=== PATIENT | male | born 1955 | race Caucasian/White ===

== ENCOUNTER 2017-05-07 18:22 | Inpatient (IN) | payer OTHER ==
[~2017-05-07] VITALS: Ht 175.3 cm; Wt 67.2 kg
[~2017-05-07 18:22] MED LIST: CLONAZEPAM0.25 MG PO; FOLIC ACID1 MG PO; LEXAPRO10 MG PO; METOPROLOL25 MG PO; MULTIPLE VITAMI1 CAP PO; PHARMASSURE MA500 MG PO; PRILOSEC 20MG20 MG PO; THIAMINE HCL100 MG PO
[2017-05-07 20:00] VITALS: BP 133/99; PULSE 96; TEMP 99
[2017-05-07] MEDS ORDERED: NORVASC 10MG10 MG PO (20:15)
[2017-05-07] MEDS ORDERED: HCTZ 25MG TAB25 MG PO (20:16)
[2017-05-07] MEDS ORDERED: NOVLOG SQ (20:17)
[2017-05-07] MEDS ORDERED: INSLANT SQ (20:19)
[2017-05-07] MEDS ORDERED: GLUCOPHAGE1000 MG PO (20:20)
[2017-05-07] MEDS ORDERED: REGLAN 10MG10 MG/TAB PO (20:22)
[2017-05-07 22:02] VITALS: BP 133/99; PULSE 96; TEMP 99
[2017-05-07 22:44] VITALS: BP 117/79; PULSE 95; TEMP 98.9
[2017-05-07] MEDS ORDERED: LOPRESSOR 550 MG/TAB PO (23:20)
[2017-05-07] MEDS ORDERED: K-TAB20 PO (23:21)
[2017-05-07] MEDS ORDERED: ZOFRAN8 MG PO (23:23)
[2017-05-08] VITALS (17 sets, daily range): BP systolic 81–151; BP diastolic 55–91; PULSE 86–134; TEMP 97.9–100.8
[2017-05-08 00:11] LABS: AMPHETAMINE URINE NEGATIVE; BARBITURATES URINE NEGATIVE; BENZODIAZEPINES URINE NEGATIVE; BUPRENORPHINE URINE NEGATIVE; METHADONE URINE NEGATIVE; OPIATES URINE POSITIVE; OXYCODONE URINE NEGATIVE; PHENCYCLIDINE URINE NEGATIVE; PROPOXYPHENE URINE NEGATIVE; THC CANNABINOIDS URINE POSITIVE; TRICYCLIC ANTIDEPRESS URINE NEGATIVE
[2017-05-08 06:26] LABS: BASO % 0.3 % (0.0-2.0); EOS # 0.1 (0.0-0.7); EOS % 0.8 % (0-4.0); GRAN # 5.7 (1.4-6.5); GRAN % 75.1 % (42.2-75.2); HEMATOCRIT 37.7 % (42.0-52.0); HEMOGLOBIN 13.3 g/dl (13.5-18.0); LYMPH # 1.1 (1.2-3.4); MEAN CELL VOLUME 92 fl (80.0-100.0); MEAN CORPUSCULAR HEMOGLOBIN 32 pg (27.0-31.0); MEAN CORPUSCULAR HGB CONC 35 g/dl (33.0-37.0); MEAN PLATELET VOLUME 9.9 fl (7.4-10.4); MONO # 0.6 (0.1-0.6); MONO % 8.3 % (1.7-9.3); PLATELET COUNT 245 K/mm3 (130-400); RED BLOOD COUNT 4.12 M/mm3 (4.20-5.60); WHITE BLOOD COUNT 7.6 K/mm3 (4.8-10.8)
[2017-05-08 06:39] LABS: CALCIUM 8.2 mg/dL (8.4-10.2); CREATININE, serum 0.92 mg/dL (0.66-1.25); MAGNESIUM 2.2 mg/dL (1.6-2.3); POTASSIUM 3.1 mmol/L (3.4-5.0)
[2017-05-09] VITALS (17 sets, daily range): BP systolic 93–137; BP diastolic 60–89; PULSE 83–104; TEMP 97.5–99.2
[2017-05-09 07:18] LABS: ADD PATHOLOGY DIFF REVIEW NO
[2017-05-09 07:31] LABS: MEAN CELL VOLUME 94 fl (80.0-100.0); MEAN CORPUSCULAR HEMOGLOBIN 32 pg (27.0-31.0); MEAN CORPUSCULAR HGB CONC 34 g/dl (33.0-37.0); MEAN PLATELET VOLUME 10.6 fl (7.4-10.4); PLATELET COUNT 195 K/mm3 (130-400); RED BLOOD COUNT 3.72 M/mm3 (4.20-5.60); WHITE BLOOD COUNT 9.6 K/mm3 (4.8-10.8)
[2017-05-09 07:34] LABS: HEMATOCRIT 34.9 % (42.0-52.0)
[2017-05-09 07:37] LABS: ADJUSTED CALCIUM 8.5 mg/dL (8.4-10.2); ALBUMIN 2.7 gm/dL (3.5-5.0); BILIRUBIN,TOTAL 0.9 mg/dL (0.0-1.0); CALCIUM 7.5 mg/dL (8.4-10.2); CREATININE, serum 0.82 mg/dL (0.66-1.25); MAGNESIUM 1.3 mg/dL (1.6-2.3); POTASSIUM 3.7 mmol/L (3.4-5.0); TOTAL PROTEIN 5.1 gm/dL (6.4-8.2)
[2017-05-09 08:50] LABS: BAND 4 % (0-10); EOSINOPHIL 1 % (0-4); LYMPHOCYTE 9 % (20.0-51.0); NEUTROPHILS 82 % (42.0-75.2); TOTAL CELLS COUNTED 100
[2017-05-09 08:51] LABS: PLATELET ESTIMATE NORMAL (NORMAL)
[2017-05-10] VITALS (16 sets, daily range): BP systolic 105–170; BP diastolic 53–88; PULSE 80–103; TEMP 97.5–99.2
[2017-05-10 07:40] LABS: BASO % 0.4 % (0.0-2.0); EOS # 0.1 (0.0-0.7); EOS % 1.6 % (0-4.0); GRAN # 5.1 (1.4-6.5); LYMPH # 0.9 (1.2-3.4); LYMPH % 13.5 % (20.0-51.0); MEAN CELL VOLUME 95 fl (80.0-100.0); MEAN CORPUSCULAR HGB CONC 34 g/dl (33.0-37.0); MEAN PLATELET VOLUME 11.1 fl (7.4-10.4); MONO # 0.6 (0.1-0.6); MONO % 9.1 % (1.7-9.3); PLATELET COUNT 181 K/mm3 (130-400); WHITE BLOOD COUNT 6.8 K/mm3 (4.8-10.8)
[2017-05-10 07:41] LABS: HEMATOCRIT 35.2 % (42.0-52.0); HEMOGLOBIN 11.9 g/dl (13.5-18.0); MEAN CORPUSCULAR HEMOGLOBIN 32 pg (27.0-31.0)
[2017-05-10 07:53] LABS: ADJUSTED CALCIUM 8.8 mg/dL (8.4-10.2); ALBUMIN 2.6 gm/dL (3.5-5.0); BILIRUBIN,TOTAL 0.5 mg/dL (0.0-1.0); CALCIUM 7.7 mg/dL (8.4-10.2); CREATININE, serum 0.75 mg/dL (0.66-1.25); MAGNESIUM 1.3 mg/dL (1.6-2.3); POTASSIUM 4.2 mmol/L (3.4-5.0); TOTAL PROTEIN 5.2 gm/dL (6.4-8.2)
[2017-05-10 11:14] LABS: PH 8 (5-8); SQUAMOUS EPITHELIAL None Seen /hpf; URINE APPEARANCE Clear; URINE BACTERIA None Seen /hpf; URINE BILIRUBIN Negative (NEGATIVE); URINE BLOOD Negative (NEGATIVE); URINE COLOR Yellow; URINE GLUCOSE 3+ (NEGATIVE); URINE KETONE Negative (NEGATIVE); URINE LEUKOCYTE ESTERASE Negative (NEGATIVE); URINE PROTEIN(semi-quant) Negative (NEGATIVE); URINE UROBILINOGEN Negative (NEGATIVE); URINE WBC 0-2 /hpf
[2017-05-10 11:19] LABS: COLLECTION METHOD CLEAN CATCH
[2017-05-11] VITALS (12 sets, daily range): BP systolic 114–144; BP diastolic 71–91; PULSE 77–97; TEMP 97.9–98.5
[2017-05-11 07:06] LABS: BASO % 0.4 % (0.0-2.0); EOS # 0.1 (0.0-0.7); EOS % 1.8 % (0-4.0); GRAN # 5.1 (1.4-6.5); HEMATOCRIT 37.8 % (42.0-52.0); HEMOGLOBIN 12.8 g/dl (13.5-18.0); LYMPH # 1.6 (1.2-3.4); LYMPH % 21.2 % (20.0-51.0); MEAN CELL VOLUME 93 fl (80.0-100.0); MEAN CORPUSCULAR HEMOGLOBIN 32 pg (27.0-31.0); MEAN CORPUSCULAR HGB CONC 34 g/dl (33.0-37.0); MEAN PLATELET VOLUME 10.2 fl (7.4-10.4); MONO # 0.7 (0.1-0.6); MONO % 9.2 % (1.7-9.3); PLATELET COUNT 237 K/mm3 (130-400); RED BLOOD COUNT 4.05 M/mm3 (4.20-5.60); WHITE BLOOD COUNT 7.6 K/mm3 (4.8-10.8)
[2017-05-11 07:24] LABS: ADJUSTED CALCIUM 9.3 mg/dL (8.4-10.2); ALBUMIN 2.9 gm/dL (3.5-5.0); BILIRUBIN,TOTAL 0.6 mg/dL (0.0-1.0); CALCIUM 8.4 mg/dL (8.4-10.2); CREATININE, serum 0.74 mg/dL (0.66-1.25); MAGNESIUM 1.7 mg/dL (1.6-2.3); POTASSIUM 3.8 mmol/L (3.4-5.0); TOTAL PROTEIN 5.8 gm/dL (6.4-8.2)
[2017-05-12 01:57] VITALS: BP 122/80; PULSE 83; TEMP 98.6
[2017-05-12 07:02] LABS: CALCIUM 8.8 mg/dL (8.4-10.2); CREATININE, serum 0.78 mg/dL (0.66-1.25); POTASSIUM 4.7 mmol/L (3.4-5.0)
[2017-05-12 08:36] VITALS: BP 118/81; PULSE 84; TEMP 97.6
[2017-05-12] MEDS ORDERED: ROCEPHIN VIA1 G/VIAL IJ (11:29)
[2017-05-12] MEDS ORDERED: PROTONIX 40MG T40 MG PO (11:31)
[2017-05-12] MEDS ORDERED: MAG-OX 400400 MG/TAB PO (11:31)
[2017-05-12] MEDS ORDERED: DUO-KAPS1 CAP PO (11:32)
[2017-05-12] MEDS ORDERED: FOLIC ACID 11 MG/TA1 PO (11:32)
[2017-05-12] MEDS ORDERED: INSLANT SQ (11:32)
[2017-05-12] MEDS ORDERED: DILAUDID 2MG TAB2 MG PO (11:33)
[2017-05-12] MEDS ORDERED: CEPHALEXIN500 M1 PO ×2 (11:34→11:35)
[2017-05-12 11:46] VITALS: BP 170/91; PULSE 117; TEMP 98.4
[2017-05-12 16:40] VITALS: BP 140/60; PULSE 59
[2017-05-12 17:18] VITALS: BP 145/61; PULSE 59
== END 2017-05-12 17:10 | disposition home or self-care (01) | DRG 438 ==
LOC: MEDICAL 18:22
PROVIDERS: Internal Medicine; Nurse Practitioner; Physician Assistant
DX: K85.20 Alcohol induced acute pancreatitis without necrosis or infection (principal); E43 Unspecified severe protein-calorie malnutrition; N17.9 Acute kidney failure, unspecified; E87.1 Hypo-osmolality and hyponatremia; R78.81 Bacteremia; R19.09 Other intra-abdominal and pelvic swelling, mass and lump; B96.1 Klebsiella pneumoniae [K. pneumoniae] as the cause of diseases classified elsewhere; K86.0 Alcohol-induced chronic pancreatitis; E11.9 Type 2 diabetes mellitus without complications; I10 Essential (primary) hypertension; F17.210 Nicotine dependence, cigarettes, uncomplicated; F10.10 Alcohol abuse, uncomplicated; F12.10 Cannabis abuse, uncomplicated; F13.10 Sedative, hypnotic or anxiolytic abuse, uncomplicated; Z79.4 Long term (current) use of insulin; E83.42 Hypomagnesemia
CPT/HCPCS: 99223-AI; 99232-AI; 99233-AI; J0696; J0744; J1170; J1815; J2060; J3411; J3475; J7030

== ENCOUNTER → 2017-10-21 | Outpatient (CLI) | payer OTHER ==
[~2017-10-21] MED LIST changes: +CEPHALEXIN500 M1 PO; +DILAUDID 2MG TAB2 MG PO; +DUO-KAPS1 CAP PO; +FOLIC ACID 11 MG/TA1 PO; +GLUCOPHAGE1000 MG PO; +HCTZ 25MG TAB25 MG PO; +INSLANT SQ; +K-TAB20 PO; +LOPRESSOR 550 MG/TAB PO; +MAG-OX 400400 MG/TAB PO; +NORVASC 10MG10 MG PO; +NOVLOG SQ; +PROTONIX 40MG T40 MG PO; +REGLAN 10MG10 MG/TAB PO; +ROCEPHIN VIA1 G/VIAL IJ; +ZOFRAN8 MG PO
== END ==
LOC: COL.RAD 07:33
DX: R11.0 Nausea (principal); R10.13 Epigastric pain; Z88.5 Allergy status to narcotic agent
CPT/HCPCS: A9541